=== PATIENT | female | born 1950 | race African-American/Black ===

== ENCOUNTER 2016-11-04 19:07 | Emergency (ER) | payer MEDICAID ==
[~2016-11-04] VITALS: Ht 170.2 cm; Wt 63.5 kg
[~2016-11-04 19:07] MED LIST: AMLO5TAB2 PO; CITA-77; DIVA500T59 PO; DOCU60SY2 PO; FERRTAB PO; FLUO20CA19 PO; HYDRX10T PO; INSLISPI; LORA-622 PO; MECL12.554 PO; METF-314; METO25TA5; MULT-690 PO; NAPR220C PO; POTA99TA15 PO; PROZAC; RISP3TAB41; TRAZADONE PO
[2016-11-04 19:54] VITALS: BP 128/96
== END 2016-11-04 22:17 | disposition home or self-care (01) ==
LOC: EDUNIT# 19:07 → EDBD 19:07 → ER 19:12
DX: G89.29 Other chronic pain (principal); M54.5 Low back pain; M19.90 Unspecified osteoarthritis, unspecified site; E11.9 Type 2 diabetes mellitus without complications; I10 Essential (primary) hypertension; Z88.0 Allergy status to penicillin
CPT/HCPCS: 72040; 72070; 72100

== ENCOUNTER 2017-08-26 14:00 | Emergency (ER) | payer MEDICAID ==
[~2017-08-26] VITALS: Ht 177.8 cm; Wt 77.1 kg
[~2017-08-26 14:00] MED LIST changes: -METF-314; +METF-371
[2017-08-26 14:09] VITALS: BP 140/70
== END 2017-08-26 16:15 | disposition left against medical advice (07) ==
LOC: ER 14:00
DX: F41.9 Anxiety disorder, unspecified (principal); Z53.21 Procedure and treatment not carried out due to patient leaving prior to being seen by health care provider
CPT/HCPCS: 93005

== ENCOUNTER 2017-11-10 13:36 | Emergency (ER) | payer MEDICAID ==
[~2017-11-10] VITALS: Ht 167.6 cm; Wt 74.8 kg
[2017-11-10 15:13] LABS: BUN/Creatinine Ratio 16.8; Calcium 8.8 mg/dL (8.5-10.1); Potassium 3.8 mmol/L (3.5-5.1)
[2017-11-10 15:16] LABS: Bilirubin, Total 0.1 mg/dL (0.2-1.0); Total Protein 7.2 g/dL (6.4-8.2)
[2017-11-10 15:21] LABS: Basophils # (auto) 0 uL; Basophils % (auto) 0.5 % (0.0-2.0); Eosinophils # (auto) 0.1 uL; Eosinophils % (auto) 1.2 % (0.0-7.0); Hematocrit 35.2 % (36.0-46.0); Hemoglobin 11.7 g/dL (12.2-16.2); Lymphocytes # (auto) 2.2 uL; Lymphocytes % (auto) 37.8 % (10.0-50.0); Mean Corpuscular Hemoglobin 30.4 pg (28.0-32.0); Mean Corpuscular Hgb Conc. 33.2 g/dL (32.0-36.0); Mean Corpuscular Volume 91.3 fL (80.0-100.0); Monocytes # (auto) 0.4 uL; Monocytes % (auto) 7.1 % (0.0-12.0); Neutrophils # (auto) 3.1 uL; Neutrophils % (auto) 53.4 % (37.0-80.0); Nucleated Red Blood Cells % 0.2 %; Platelet Count (auto) 233 10^3/uL (140-450); Red Blood Cells 3.85 10^6/uL (4.0-5.20); Red Cell Distribution Width 14.2 % (11.8-14.3); White Blood Cell 5.9 10^3/uL (4.4-10.8)
[2017-11-10 17:57] LABS: Urine Bacteria FEW /hpf (None Seen); Urine Blood Negative /uL (Negative); Urine Specific Gravity 1.003 (1.001-1.035); Urine WBC 9 /hpf (0 - 5)
[2017-11-10] MEDS ORDERED: cefTRIAXone SOD 1,000 MG VL IM ONE (19:00)
[2017-11-10] MEDS ORDERED: LIDOCAINE 1% HCL (LOCAL ANESTH.) INJ 20ML MDV ONE (21:18)
[2017-11-10 21:25] VITALS: BP 132/85
== END 2017-11-10 22:18 | disposition home or self-care (01) ==
LOC: ER 13:36 → EDBD 13:36 → ER 22:18
DX: N39.0 Urinary tract infection, site not specified (principal); D64.9 Anemia, unspecified; E11.9 Type 2 diabetes mellitus without complications; F20.9 Schizophrenia, unspecified; F32.9 Major depressive disorder, single episode, unspecified; F41.9 Anxiety disorder, unspecified; Z79.4 Long term (current) use of insulin; Z88.0 Allergy status to penicillin
CPT/HCPCS: 36415; 71045; 80053; 81001; 82962; 85025; 93005; 96372; 99285; J0696; J2001

== ENCOUNTER 2018-03-12 18:19 | Emergency (ER) | payer MEDICAID ==
[~2018-03-12] VITALS: Ht 170.2 cm; Wt 72.6 kg
[~2018-03-12 18:19] MED LIST changes: +AMLO5TAB13 PO; -AMLO5TAB2 PO
[2018-03-12 20:27] LABS: Basophils # (auto) 0 uL; Basophils % (auto) 0.5 % (0.0-2.0); Eosinophils # (auto) 0.1 uL; Eosinophils % (auto) 1.8 % (0.0-7.0); Hemoglobin 11.9 g/dL (12.2-16.2); Lymphocytes # (auto) 1.6 uL; Lymphocytes % (auto) 29.9 % (10.0-50.0); Mean Corpuscular Hemoglobin 30.3 pg (28.0-32.0); Mean Corpuscular Hgb Conc. 33.2 g/dL (32.0-36.0); Mean Corpuscular Volume 91.4 fL (80.0-100.0); Monocytes # (auto) 0.5 uL; Neutrophils # (auto) 3.1 uL; Neutrophils % (auto) 57.8 % (37.0-80.0); Nucleated Red Blood Cells % 0.1 %; Platelet Count (auto) 205 10^3/uL (140-450); Red Blood Cells 3.94 10^6/uL (4.0-5.20); Red Cell Distribution Width 14.1 % (11.8-14.3); White Blood Cell 5.4 10^3/uL (4.4-10.8)
[2018-03-12 20:43] LABS: Salicylate < 1.7 mg/dL (2.8-20.0)
[2018-03-12 20:45] LABS: Albumin 3.4 g/dL (3.4-5.0); BUN/Creatinine Ratio 10.3; Bilirubin, Total 0.3 mg/dL (0.2-1.0); Calcium 9.2 mg/dL (8.5-10.1); Potassium 4.1 mmol/L (3.5-5.1); Total Protein 7.9 g/dL (6.4-8.2)
[2018-03-12 20:47] LABS: Acetaminophen < 2.0 ug/mL (10-30)
[2018-03-12 22:10] VITALS: BP 146/80
== END 2018-03-12 21:36 | disposition home or self-care (01) ==
LOC: EDBD 18:19 → ER 18:23
DX: F20.0 Paranoid schizophrenia (principal); E11.65 Type 2 diabetes mellitus with hyperglycemia; F31.9 Bipolar disorder, unspecified; I10 Essential (primary) hypertension; F41.9 Anxiety disorder, unspecified; M19.90 Unspecified osteoarthritis, unspecified site; Z88.0 Allergy status to penicillin; Z79.899 Other long term (current) drug therapy; Z91.14 Patient's other noncompliance with medication regimen
CPT/HCPCS: 36415; 80053; 80329; 85025

== ENCOUNTER 2018-06-09 12:25 | Emergency (ER) | payer MEDICARE, MEDICAID ==
[~2018-06-09] VITALS: Ht 175.3 cm; Wt 77.1 kg
[2018-06-09] MEDS ORDERED: SODIUM CHLORIDE 0.9% 1,000 ML IVB ONE (12:36)
[2018-06-09] MEDS ORDERED: ONDANSETRON HCL 4 MG/2 ML VIAL IV ONE (12:45)
[2018-06-09] MEDS ORDERED: LORazepam 0.5 MG TAB PO ONE (12:45)
[2018-06-09 12:48] VITALS: BP 125/78
[2018-06-09 13:06] LABS: Basophils # (auto) 0 uL; Basophils % (auto) 0.5 % (0.0-2.0); Eosinophils # (auto) 0 uL; Eosinophils % (auto) 0.8 % (0.0-7.0); Hemoglobin 11.8 g/dL (12.2-16.2); Lymphocytes # (auto) 1.4 uL; Lymphocytes % (auto) 32.7 % (10.0-50.0); Mean Corpuscular Hemoglobin 29.5 pg (28.0-32.0); Mean Corpuscular Hgb Conc. 32.7 g/dL (32.0-36.0); Mean Corpuscular Volume 90.2 fL (80.0-100.0); Monocytes # (auto) 0.3 uL; Monocytes % (auto) 7.8 % (0.0-12.0); Neutrophils # (auto) 2.5 uL; Neutrophils % (auto) 58.2 % (37.0-80.0); Platelet Count (auto) 247 10^3/uL (140-450); Red Blood Cells 3.99 10^6/uL (4.0-5.20); Red Cell Distribution Width 14.5 % (11.8-14.3); White Blood Cell 4.3 10^3/uL (4.4-10.8)
[2018-06-09 13:19] LABS: INR 0.91 (0.9-1.15); Prothrombin Time 9.8 sec (9.27-12.13)
[2018-06-09 13:20] LABS: Albumin 3.2 g/dL (3.4-5.0); Calcium 9.1 mg/dL (8.5-10.1)
[2018-06-09 13:23] LABS: BUN/Creatinine Ratio 13.9; Bilirubin, Total 0.1 mg/dL (0.2-1.0); Total Protein 7.4 g/dL (6.4-8.2)
[2018-06-09 15:12] LABS: Urine Bacteria NONE SEEN /hpf (None Seen); Urine Blood Negative /uL (Negative); Urine Specific Gravity 1.004 (1.001-1.035); Urine WBC 1 /hpf (0 - 5)
== END 2018-06-09 15:37 | disposition home or self-care (01) ==
LOC: EDUNIT# 12:25 → ER 12:25
DX: F41.9 Anxiety disorder, unspecified (principal); R10.13 Epigastric pain; R11.2 Nausea with vomiting, unspecified; R19.7 Diarrhea, unspecified; F20.9 Schizophrenia, unspecified; F31.9 Bipolar disorder, unspecified; Z88.0 Allergy status to penicillin; Z79.899 Other long term (current) drug therapy
CPT/HCPCS: 36415; 74176; 80053; 81001; 82150; 82962; 83690; 85025; 85610; 85730

== ENCOUNTER 2020-03-29 21:54 | Emergency (ER) | payer MEDICARE, MEDICAID ==
[~2020-03-29] VITALS: Ht 167.6 cm; Wt 65.8 kg
[~2020-03-29 21:54] MED LIST changes: -AMLO5TAB13 PO; +AMLO5TAB15 PO; +DIVA500T13 PO; -DIVA500T59 PO; +MECL12.514 PO; -MECL12.554 PO
[2020-03-29 22:44] LABS: Urine Bacteria FEW /hpf (None Seen); Urine Blood Negative /uL (Negative); Urine Specific Gravity 1.002 (1.001-1.035); Urine WBC <1 /hpf (0 - 5)
[2020-03-30 00:59] LABS: Basophils # (auto) 0 10 ^3/uL (0-0.2); Basophils % (auto) 0.4 % (0.0-2.0); Eosinophils # (auto) 0.1 10 ^3/uL (0-0.8); Eosinophils % (auto) 1.8 % (0.0-7.0); Hematocrit 37.6 % (36.0-46.0); Hemoglobin 12.3 g/dL (12.2-16.2); Lymphocytes # (auto) 3.2 10 ^3/uL (0.4-5.4); Lymphocytes % (auto) 46.5 % (10.0-50.0); Mean Corpuscular Hemoglobin 29.3 pg (28.0-32.0); Mean Corpuscular Hgb Conc. 32.7 g/dL (32.0-36.0); Mean Corpuscular Volume 89.7 fL (80.0-100.0); Monocytes # (auto) 0.6 10 ^3/uL (0-1.3); Monocytes % (auto) 8.1 % (0.0-12.0); Neutrophils % (auto) 43.2 % (37.0-80.0); Nucleated Red Blood Cells % 0.2 %; Platelet Count (auto) 204 10^3/uL (140-450); Red Blood Cells 4.19 10^6/uL (4.0-5.20); Red Cell Distribution Width 15.8 % (11.8-14.3); White Blood Cell 6.9 10^3/uL (4.4-10.8)
[2020-03-30 01:15] LABS: INR 0.97 (0.9-1.15); Partial Thromboplastin Time 27.9 sec (23.0-31.2)
[2020-03-30 01:17] LABS: Alanine Aminotransferase 29 U/L (13-56); Albumin 3.2 g/dL (3.4-5.0); Anion Gap 8 (5-15); Aspartate Aminotransferase 19 U/L (15-37); BUN/Creatinine Ratio 15.5; Blood Urea Nitrogen 17 mg/dL (7-18); Calcium 9.6 mg/dL (8.5-10.1); Carbon Dioxide 27 mmol/L (21-32); Chloride 107 mmol/L (98-107); GFR African American 63 mL/min; GFR Non-African American 52 mL/min; Glucose 110 mg/dL (74-106); Potassium 4.2 mmol/L (3.5-5.1); Sodium 142 mmol/L (136-145)
[2020-03-30 01:36] LABS: Alkaline Phosphatase 138 U/L (45-117); Bilirubin, Total 0.3 mg/dL (0.2-1.0); Total Protein 7.2 g/dL (6.4-8.2)
[2020-03-30] MEDS ORDERED: SODIUM CHLORIDE 0.9% 1,000 ML IV ONE (01:45)
[2020-03-30] MEDS ORDERED: IOHEXOL 350 MG/ML 100ML IJ ONE (01:51)
[2020-03-30 07:35] VITALS: BP 134/74
== END 2020-03-30 09:52 | disposition home or self-care (01) ==
LOC: EDBD 21:54 → ER 21:57
DX: R07.89 Other chest pain (principal); K21.9 Gastro-esophageal reflux disease without esophagitis; E11.9 Type 2 diabetes mellitus without complications; I10 Essential (primary) hypertension; Z88.0 Allergy status to penicillin
CPT/HCPCS: 36415; 71045; 71275; 80053; 81001; 82962; 83880; 84484; 85025; 85379; 85610; 85730; 96360; 96361; 99285; Q9967

== ENCOUNTER 2020-04-15 15:19 | Inpatient (IN) | payer MEDICARE, MEDICAID ==
[~2020-04-15] VITALS: Ht 170.2 cm; Wt 77.7 kg
[2020-04-15] MEDS ORDERED: PIPERACILLIN-TAZOB 3.375GM 100 ML IV ONE (15:45)
[2020-04-15] MEDS ORDERED: SODIUM CHLORIDE 0.9% 1,000 ML IV ONE (15:45)
[2020-04-15 18:05] LABS: Basophils # (auto) 0 10 ^3/uL (0-0.2); Basophils % (auto) 0.6 % (0.0-2.0); Eosinophils # (auto) 0.1 10 ^3/uL (0-0.8); Eosinophils % (auto) 1.2 % (0.0-7.0); Hematocrit 37.8 % (36.0-46.0); Hemoglobin 12.5 g/dL (12.2-16.2); Lymphocytes # (auto) 2.1 10 ^3/uL (0.4-5.4); Lymphocytes % (auto) 37.1 % (10.0-50.0); Mean Corpuscular Hemoglobin 29.8 pg (28.0-32.0); Mean Corpuscular Hgb Conc. 32.9 g/dL (32.0-36.0); Mean Corpuscular Volume 90.5 fL (80.0-100.0); Monocytes # (auto) 0.4 10 ^3/uL (0-1.3); Monocytes % (auto) 7.6 % (0.0-12.0); Neutrophils % (auto) 53.5 % (37.0-80.0); Nucleated Red Blood Cells % 0.2 %; Platelet Count (auto) 206 10^3/uL (140-450); Red Blood Cells 4.18 10^6/uL (4.0-5.20); Red Cell Distribution Width 15.4 % (11.8-14.3); White Blood Cell 5.6 10^3/uL (4.4-10.8)
[2020-04-15 18:21] LABS: Albumin 3.7 g/dL (3.4-5.0); Anion Gap 5 (5-15); Blood Urea Nitrogen 20 mg/dL (7-18); Calcium 8.8 mg/dL (8.5-10.1); Carbon Dioxide 27 mmol/L (21-32); Chloride 103 mmol/L (98-107); Glucose 218 mg/dL (74-106); Sodium 135 mmol/L (136-145)
[2020-04-15 18:30] LABS: Alanine Aminotransferase 41 U/L (13-56); Alkaline Phosphatase 210 U/L (45-117); Aspartate Aminotransferase 51 U/L (15-37); BUN/Creatinine Ratio 17.5; Bilirubin, Total 0.2 mg/dL (0.2-1.0); CRP High Sensitivity 1.09 mg/dL (< 0.3); GFR African American 61 mL/min; GFR Non-African American 50 mL/min; Lactate Dehydrogenase 273 U/L (84-246); Total Protein 8.2 g/dL (6.4-8.2)
[2020-04-15] MEDS ORDERED: MORPHINE SULF INJ 2 MG/ML SYRINGE 1ML IV PRN ×2 (18:45→20:30)
[2020-04-15] MEDS ORDERED: NITROGLYCERIN 0.4 MG SL TAB SL PRN ×2 (18:45→20:30)
[2020-04-15 19:36] LABS: Urine Bacteria FEW /hpf (None Seen); Urine Blood Negative /uL (Negative); Urine Specific Gravity 1.003 (1.001-1.035); Urine WBC 2 /hpf (0 - 5)
[2020-04-15] MEDS ORDERED: ALUM & MAG HYDROX-SIMETH LIQ(MAALOX) 30 ML PO PRN (20:30)
[2020-04-15] MEDS ORDERED: DOCUSATE SOD 100 MG CAP PO PRN (20:30)
[2020-04-15] MEDS ORDERED: DEXTROSE (50%) 50ML SYRG IV PRN (20:30)
[2020-04-15] MEDS ORDERED: HYDROcodone-ACET 5/325MG TAB PO PRN (20:30)
[2020-04-15] MEDS ORDERED: ONDANSETRON HCL 4 MG/2 ML VIAL IV PRN (20:30)
[2020-04-15] MEDS: SODIUM CHLORIDE 0.9% 1,000 ML IV SCH (21:39)
[2020-04-15 21:51] LABS: Alcohol, Urine < 3.0 mg/dL (0-10); Amphetamine Screen, Urine NEGATIVE (NEGATIVE); Barbiturate Scree,Urine NEGATIVE (NEGATIVE); Benzodiazephine Screen, Urine NEGATIVE (NEGATIVE); Cannabinoid Screen, Urine NEGATIVE (NEGATIVE); Cocaine Screen, Urine NEGATIVE (NEGATIVE); Opiate Scree,Urine NEGATIVE (NEGATIVE); Phencyclidine Screen, Urine NEGATIVE (NEGATIVE)
[2020-04-15] MEDS: AZTREONAM 1GM INJ 1 GM in D5W 5% 50 ML IV SCH (22:00)
[2020-04-15 22:50] VITALS: BP 141/83
--- NOTE | 2020-04-15 22:50 | NUR ---
pt arrived via wheel chair. pt transferred self to hospital bed pt has cane for assistive device. pt is on room air, 99% o2 saturation
[2020-04-15 23:40] LABS: Cholesterol 169 mg/dL (< 200)
[2020-04-15 23:43] LABS: HDL Cholesterol 65 mg/dL (40-59); LDL Cholesterol 87 mg/dL (< 100); Triglycerides 82 mg/dL (< 150)
[2020-04-16] MEDS: CLINDAMYCIN 600MG IV 50 ML IV SCH ×3 (00:03→14:58)
[2020-04-16] MEDS: ACCU-CHEK COMFORT CURVE STRIP VI SCH ×5 (00:03→21:27)
[2020-04-16] MEDS: ATORVASTATIN 20 MG TAB PO SCH ×2 (00:03→21:27)
[2020-04-16] MEDS: InsuLIN REG 1unit/0.01ml Soln (100units/ml) SC SCH ×5 (00:04→21:43)
--- NOTE | 2020-04-16 01:11 | NUR ---
In House [facility] Covid 19 swabbed walked to lab by Madison STEARNS.
[2020-04-16 05:00] VITALS: BP 141/86
--- NOTE | 2020-04-16 07:00 | NUR ---
closing note pt resting in semi fowlers with HOB at 30 degrees. no s/s of pain or distress. pt is on room air. endorsed care to day shift RN.
--- NOTE | 2020-04-16 07:10 | NUR ---
OPENING SHIFT NOTE ASSUMED CARE OF PATIENT FROM EDGER MACHINE HELPER JO ANN CASTAÑEDA. PATIENT IS AWAKE, ALERT, AND ORIENTED X4. PATIENT HAS NO S/S OF DISTRESS/SOB OR PAIN. INSTRUCTED PATIENT ON POC, PATIENT VERBALIZED UNDERSTANDING. BED IS IN LOWEST POSITION WITH SIDE RAILS RAISED X2, BED WHEELS LOCKED, AND CALL LIGHT IS WITHIN REACH. WILL CONTINUE TO MONITOR.
[2020-04-16 09:00] VITALS: BP 139/85
--- NOTE | 2020-04-16 09:00 | NUR ---
WOUND CARE NOTE: Wound care in to see patient per wound care request regarding Rt foot skin issue that are noted on admission. Bedside nurse took photograph of patient's skin issue upon admission for reference. Patient is 69 years old female with admitting diagnosis of Non healing Rt Foot Ulcer. Patient is resting in bed in Rm. 235A. She's awake, alert and oriented, self turning and repositioning. Her Patrick score is 20. Patient has no open wound other than edema and erythema to R foot from reported accidental hitting of Rt toe against the door. No further wound care monitoring needed at this time. RECOMMENDATION: Reconsult for active wound, pressure injury, Low Patrick score of 12 and below. Addendum: 04/16/20 at 1610 by Jessica Avila RN Amended: Links added.
[2020-04-16] MEDS: AZTREONAM 1GM INJ 1 GM in D5W 5% 50 ML IV SCH ×2 (09:31→13:43)
[2020-04-16] MEDS: ASPirin 81 mg TAB PO SCH (09:31)
[2020-04-16] MEDS: risperiDONE 1 MG TAB PO SCH (09:32)
[2020-04-16] MEDS: FAMOTIDINE (10MG/ML) 2ML VL IV SCH (09:32)
[2020-04-16] MEDS: FLUoxetine HCL 20 MG CAP PO SCH (09:33)
[2020-04-16] MEDS: ENOXAPARIN SOD 40 MG/0.4 ML SYRINGE SC SCH (09:33)
[2020-04-16] MEDS: MULTIPLE VITAMINS W/ MINERALS TAB PO SCH (09:33)
[2020-04-16 12:48] VITALS: BP 147/74
[2020-04-16] MEDS: SODIUM CHLORIDE 0.9% 1,000 ML IV SCH ×2 (13:42→23:10)
--- NOTE | 2020-04-16 16:43 | NUR ---
ASSESSMENT: SS consult for unsafe living conditions, board home residence The patient is a 69-year-old female, who is alert but appears to struggle with mental illness. Patient cognitive abilities are not intact. Prior to admission patient was living at a room and board facility. Patient will return to [facility] post discharge. Per Becka patient will return to previous living arrangement post discharge. Patient is ambulatory without walking devices. Patient stated that she feels unsafe at [facility] where patient resides. Per patient daughter Becka, states that her mother frequently move from facility to facility per month due to her mental illness. Patient stated that her daughter Becka is her support system. Discharge Planning: will provide resources for room and board to patient. Patient will resume residence at [facility] post discharge. Addendum: 04/16/20 at 1643 by JOSE BROUSSARD Amended: Links added. Addendum: 04/19/20 at 1120 by JOSE BROUSSARD SW inquire patient on returning home safe, patient state that she wants to return to the facility and she feel safe residing there. Patient stated that she understands the facility must lock the doors at night (that was patient issue), to provide safety protocol to clients and staff members. Inquire Patient daughter as her daughter as decision maker as power of entrepreneur daughter stated that she doesnt not have POA. Daughter discusses patient care and decision with her mother (patient) provided information on POA and strongly encourage daughter to complete that process. Daughter understood and stated that she will work on that process on a later date.
[2020-04-16 16:45] VITALS: BP 126/75
--- NOTE | 2020-04-16 19:03 | NUR ---
CLOSING SHIFT NOTE PATIENT HAS NO S/S OF DISTRESS/SOB OR PAIN AT THIS TIME. WILL ENDORSE CARE TO KEY RINGER RN.
--- NOTE | 2020-04-16 21:00 | NUR ---
pt transferred to room 293a via wheelchair. care endorsed to JO ANN Tinsley.
--- NOTE | 2020-04-16 21:05 | NUR ---
Telemetry admit from [facility] EVELIAELIZABETH admitted to Telemetry unit after SBAR received from [facility]. Patient oriented to GRIFFIN DEL ANGEL RN [facility] room 293A and unit policies regarding patient care and visiting hours. Patient now on continuous telemetry monitoring, tele box #67 and telemetry reading on arrival to unit is SR 79 BPM. Bed locked in lowest position, side rails up X2, call light within reach. Patient placed on room air oxygen saturation 95% and encouraged to call if they need something. All questions and concerns addressed, patient verbalized understanding.
[2020-04-16] MEDS: LORazepam 0.5 MG TAB PO PRN (21:27)
[2020-04-16 22:00] VITALS: BP 122/67
--- NOTE | 2020-04-17 | NUR ---
PATIENT COMPLAINING OF PAIN ON RIGHT HAND IV SITE WITH REDNESS NOTED ON IV SITE.
--- NOTE | 2020-04-17 00:22 | NUR ---
IV removal IV right hand 22g DC'd with sterile technique, catheter fully intact. Pressure dressing applied to site. Patient tolerated procedure well.
--- NOTE | 2020-04-17 00:26 | NUR ---
IV insertion IV access obtained, via clean sterile technique by inserting 22 gauge catheter at left forearm after two attempts. IV secured properly. No trauma to site. Patient tolerated procedure well.
[2020-04-17 05:00] VITALS: BP 139/78
[2020-04-17 05:01] LABS: Basophils # (auto) 0 10 ^3/uL (0-0.2); Basophils % (auto) 0.6 % (0.0-2.0); Eosinophils # (auto) 0.1 10 ^3/uL (0-0.8); Eosinophils % (auto) 1.8 % (0.0-7.0); Hematocrit 38.8 % (36.0-46.0); Hemoglobin 12.6 g/dL (12.2-16.2); Lymphocytes # (auto) 1.6 10 ^3/uL (0.4-5.4); Lymphocytes % (auto) 34.8 % (10.0-50.0); Mean Corpuscular Hemoglobin 29.3 pg (28.0-32.0); Mean Corpuscular Hgb Conc. 32.4 g/dL (32.0-36.0); Mean Corpuscular Volume 90.6 fL (80.0-100.0); Monocytes # (auto) 0.4 10 ^3/uL (0-1.3); Monocytes % (auto) 8.3 % (0.0-12.0); Neutrophils # (auto) 2.5 10 ^3/uL (1.6-8.6); Neutrophils % (auto) 54.5 % (37.0-80.0); Nucleated Red Blood Cells % 0.2 %; Platelet Count (auto) 212 10^3/uL (140-450); Red Blood Cells 4.29 10^6/uL (4.0-5.20); Red Cell Distribution Width 15.5 % (11.8-14.3); White Blood Cell 4.7 10^3/uL (4.4-10.8)
[2020-04-17 05:27] LABS: BUN/Creatinine Ratio 17.7; Calcium 9.2 mg/dL (8.5-10.1); Magnesium 2.4 mg/dL (1.6-2.6); Potassium 4.3 mmol/L (3.5-5.1)
[2020-04-17] MEDS: ACCU-CHEK COMFORT CURVE STRIP VI SCH ×4 (05:47→22:00)
[2020-04-17] MEDS: InsuLIN REG 1unit/0.01ml Soln (100units/ml) SC SCH ×4 (05:50→22:00)
--- NOTE | 2020-04-17 07:15 | NUR ---
CARE ENDORSED TO DAY SHIFT ARMANDO CHERRY. NO SIGHS OF DISTRESS/ SOB, CALL LIGHT WITHIN REACH, BED LOCKED IN LOWEST POSITION, SIDE RAILS UP X2, CALL LIGHT WITHIN REACH.
[2020-04-17 08:34] VITALS: BP 131/71
[2020-04-17] MEDS: risperiDONE 1 MG TAB PO SCH (09:11)
[2020-04-17] MEDS: MULTIPLE VITAMINS W/ MINERALS TAB PO SCH (09:12)
[2020-04-17] MEDS: FLUoxetine HCL 20 MG CAP PO SCH (09:12)
[2020-04-17] MEDS: FAMOTIDINE (10MG/ML) 2ML VL IV SCH (09:15)
[2020-04-17] MEDS: ASPirin 81 mg TAB PO SCH (09:15)
[2020-04-17] MEDS: ENOXAPARIN SOD 40 MG/0.4 ML SYRINGE SC SCH ×2 (09:17→10:00)
--- NOTE | 2020-04-17 10:48 | NUR ---
PATIENT COMPLAINS OF NON RADIATING RIGHT FOOT PAIN RATED A 5 ON A SCALE OF 0-10. WILL CONTINUE TO MONITOR Signed: 04/17/20 at 1051 by PAMELA Rodriguez <Co-Signature Required> Co-Signed: 04/17/20 at 1051 by Ching Nelson RN
[2020-04-17] MEDS: ACETAMINOPHEN 325 MG TAB PO PRN (11:00)
--- NOTE | 2020-04-17 11:05 | NUR ---
PATIENT WAS GIVEN 650 MG TYLENOL FOR PAIN IN RIGHT FOOT. PATIENT TOLERATED WELL. Signed: 04/17/20 at 1107 by PAMELA Rodriguez <Co-Signature Required> Co-Signed: 04/17/20 at 1107 by Ching Nelson RN
[2020-04-17] MEDS: SODIUM CHLORIDE 0.9% 1,000 ML IV SCH (12:30)
[2020-04-17 12:40] VITALS: BP 133/88
--- NOTE | 2020-04-17 13:00 | NUR ---
SPOKE TO PATIENT'S DAUGHTER, PANCHO. UPDATE ON PT'S STATUS GIVEN.
--- NOTE | 2020-04-17 14:30 | NUR ---
SPOKE TO DR BLAIR RE: UA RESULT. ANTIBIOTIC NOT NEEDED PER . IS ALSO AWARE THAT I SPOKE TO PT'S DAUGHTER PANCHO AND ASKED HER ABOUT THE SAFETY ISSUE THAT HER MOTHER IS HAVING AT THE BOARD AND CARE. PER PANCHO, HER MOTHER MAKES UP A LOT OF STORIES ABOUT HER ROOMMATE WHICH WAS NEVER PROVEN TO BE TRUE. PER , HE WILL HAVE SOCIAL SERVICE HANDLE IT AND MAKE SURE PT IS SAFE FOR DC.
[2020-04-17 16:41] VITALS: BP 152/99
--- NOTE | 2020-04-17 18:06 | NUR ---
SPOKE TO PHARMACIST RE: PT'S SCHEDULED MIDODRINE AT 1800. PT TOOK THE LAST DOSE AT 2PM INSTEAD OF 12. PER PHARMACIST GIVE THE MEDICATION AT 8PM TONIGHT BUT THE SCHEDULE FOR TOMORROW WILL REMAIN THE SAME (6, 12, 1800). WILL ENDORSE TO MARIN CHERRY. Addendum: 04/17/20 at 1808 by Ching Nelson RN WRONG PT NOTE
--- NOTE | 2020-04-17 19:00 | NUR ---
Opening Shift Note Assumed care of patient, awake and alert. No S/S of distress/SOB or pain. Instructed on POC and to call for assist PRN, will continue to monitor for changes Q1hr and PRN.
[2020-04-17 22:00] VITALS: BP 144/94
[2020-04-17] MEDS: ATORVASTATIN 20 MG TAB PO SCH (22:00)
[2020-04-18] MEDS: SODIUM CHLORIDE 0.9% 1,000 ML IV SCH ×2 (00:23→17:32)
[2020-04-18 05:00] VITALS: BP 153/96
[2020-04-18] MEDS: ACCU-CHEK COMFORT CURVE STRIP VI SCH ×4 (06:06→21:56)
[2020-04-18] MEDS: InsuLIN REG 1unit/0.01ml Soln (100units/ml) SC SCH ×4 (06:07→22:04)
--- NOTE | 2020-04-18 08:00 | NUR ---
Received pt resting in bed, call light with in reach, no pain reported at this time, will continue to monitor pt.
[2020-04-18] MEDS: MULTIPLE VITAMINS W/ MINERALS TAB PO SCH (09:09)
[2020-04-18] MEDS: ASPirin 81 mg TAB PO SCH (09:09)
[2020-04-18] MEDS: FAMOTIDINE (10MG/ML) 2ML VL IV SCH (09:09)
[2020-04-18] MEDS: FLUoxetine HCL 20 MG CAP PO SCH (09:10)
[2020-04-18] MEDS: risperiDONE 1 MG TAB PO SCH (09:10)
[2020-04-18] MEDS: ENOXAPARIN SOD 40 MG/0.4 ML SYRINGE SC SCH (09:11)
[2020-04-18 09:38] VITALS: BP 140/85
--- NOTE | 2020-04-18 11:33 | NUR ---
Received call from Dr. Kelly to inquire on pt's status, rt foot CT scan read, orders received for Clindamycin 600 mg iv q8hrs. As per Dr. Kelly he will be here soon to see pt.
[2020-04-18] MEDS: ACETAMINOPHEN 325 MG TAB PO PRN ×3 (12:20→20:43)
[2020-04-18 12:40] VITALS: BP 141/92
[2020-04-18] MEDS: CLINDAMYCIN 600MG IV 50 ML IV SCH ×2 (13:56→21:45)
--- NOTE | 2020-04-18 14:20 | NUR ---
Dr. Kelly / podiatry at bed side to see pt, doctor assessed the rt foot, and orders received for rt foot xray 3 view to r/o fracture.
[2020-04-18 16:41] VITALS: BP 129/86
--- NOTE | 2020-04-18 18:04 | NUR ---
Dr. Mejia at bed side to see pt, doctor informed of pt requesting her blood pressure home medication. Orders received to continue BP home medication Amlodipine.
--- NOTE | 2020-04-18 19:15 | NUR ---
Opening Shift Note Assumed care of patient, awake and alert. Instructed on POC and to call for assist PRN, will continue to monitor for changes Q1hr and PRN.
[2020-04-18] MEDS: ATORVASTATIN 20 MG TAB PO SCH (21:46)
[2020-04-18] MEDS: LORazepam 0.5 MG TAB PO PRN (21:46)
[2020-04-18 22:10] VITALS: BP 114/61
[2020-04-19] MEDS: SODIUM CHLORIDE 0.9% 1,000 ML IV SCH ×2 (04:30→17:50)
[2020-04-19 05:30] VITALS: BP 136/77
[2020-04-19] MEDS: CLINDAMYCIN 600MG IV 50 ML IV SCH ×2 (06:09→17:14)
[2020-04-19] MEDS: ACCU-CHEK COMFORT CURVE STRIP VI SCH ×3 (06:41→17:30)
[2020-04-19] MEDS: InsuLIN REG 1unit/0.01ml Soln (100units/ml) SC SCH ×3 (06:50→17:00)
[2020-04-19 06:56] LABS: Basophils # (auto) 0 10 ^3/uL (0-0.2); Basophils % (auto) 0.4 % (0.0-2.0); Eosinophils # (auto) 0.1 10 ^3/uL (0-0.8); Eosinophils % (auto) 1.6 % (0.0-7.0); Hematocrit 37.9 % (36.0-46.0); Hemoglobin 12.4 g/dL (12.2-16.2); Lymphocytes # (auto) 2.1 10 ^3/uL (0.4-5.4); Lymphocytes % (auto) 41.1 % (10.0-50.0); Mean Corpuscular Hemoglobin 29.6 pg (28.0-32.0); Mean Corpuscular Hgb Conc. 32.8 g/dL (32.0-36.0); Mean Corpuscular Volume 90.4 fL (80.0-100.0); Monocytes # (auto) 0.4 10 ^3/uL (0-1.3); Neutrophils # (auto) 2.5 10 ^3/uL (1.6-8.6); Neutrophils % (auto) 48.9 % (37.0-80.0); Nucleated Red Blood Cells % 0.1 %; Platelet Count (auto) 222 10^3/uL (140-450); Red Blood Cells 4.19 10^6/uL (4.0-5.20); Red Cell Distribution Width 15.4 % (11.8-14.3); White Blood Cell 5.1 10^3/uL (4.4-10.8)
[2020-04-19 07:17] LABS: Calcium 9.4 mg/dL (8.5-10.1); Potassium 4.3 mmol/L (3.5-5.1)
[2020-04-19 08:00] VITALS: BP 142/95
[2020-04-19 09:00] VITALS: BP 153/94
[2020-04-19] MEDS: ASPirin 81 mg TAB PO SCH (09:43)
[2020-04-19] MEDS: FAMOTIDINE (10MG/ML) 2ML VL IV SCH (09:43)
[2020-04-19] MEDS: MULTIPLE VITAMINS W/ MINERALS TAB PO SCH (09:43)
[2020-04-19] MEDS: FLUoxetine HCL 20 MG CAP PO SCH (09:44)
[2020-04-19] MEDS: risperiDONE 1 MG TAB PO SCH (09:45)
[2020-04-19] MEDS ORDERED: amLODIPine BESYLATE 5 MG TAB PO SCH (10:00)
[2020-04-19 13:00] VITALS: BP 146/82
--- NOTE | 2020-04-19 15:18 | NUR ---
Nutrition note Pt edu on diabetic low na diet. oral and written communication provided
[2020-04-19 16:03] VITALS: BP 153/94
--- NOTE | 2020-04-19 16:15 | NUR ---
D/C Planning Per social service consult to resume home health. Faxed clinical information to [facility]. Per Mehreen with [facility] patient has been accepted and service to start within 24-48hrs upon d/c day.
[2020-04-19 16:34] VITALS: BP 138/86
[2020-04-19] MEDS: ENOXAPARIN SOD 40 MG/0.4 ML SYRINGE SC SCH (17:13)
--- NOTE | 2020-04-19 18:29 | NUR ---
Discharge instructions given as ordered. Encourage to follow up with PMD as instructed. Daughter Rosita notified of the discharge. All questions and concerns addressed. Patient verbalized understanding. Medication reconciliation form completed and copy given to patient. IV removed with catheter intact, pressure dressing applied. Telemetry unit returned to ICU. Patient taken to vehicle via wheelchair with all personal belongings, accompanied by staff . No distress noted at time of departure.
== END 2020-04-19 18:50 | disposition home health service (06) | DRG 342 ==
LOC: EDUNIT# 15:19 → ER 15:19 → EDBD 15:19 → TELE 15:20 → UNDOADMIN 15:20 → TELE-EAST 15:21 → TELE-WESTW 04-16 21:06 → TELE 04-19 13:50 → TELE-WESTW 04-19 13:52
PROVIDERS: ADMIT Hospitalist; ATTEND Internal Medicine
DX: S92.911A Unspecified fracture of right toe(s), initial encounter for closed fracture (principal); E11.51 Type 2 diabetes mellitus with diabetic peripheral angiopathy without gangrene; E11.40 Type 2 diabetes mellitus with diabetic neuropathy, unspecified; E87.1 Hypo-osmolality and hyponatremia; M19.90 Unspecified osteoarthritis, unspecified site; F31.9 Bipolar disorder, unspecified; F41.9 Anxiety disorder, unspecified; E11.22 Type 2 diabetes mellitus with diabetic chronic kidney disease; F20.9 Schizophrenia, unspecified; I12.9 Hypertensive chronic kidney disease with stage 1 through stage 4 chronic kidney disease, or unspecified chronic kidney disease; N18.9 Chronic kidney disease, unspecified; Z20.828 Contact with and (suspected) exposure to other viral communicable diseases; Z79.4 Long term (current) use of insulin; Z79.899 Other long term (current) drug therapy; Z82.49 Family history of ischemic heart disease and other diseases of the circulatory system; Z83.3 Family history of diabetes mellitus; Z87.891 Personal history of nicotine dependence; Z88.0 Allergy status to penicillin
CPT/HCPCS: 36415; 71045; 73630; 73700; 80048; 80053; 80061; 80307; 81001; 82607; 82728; 82962; 83036; 83615; 83735; 83880; 84484; 85025; 85652; 86141; 87040; 87086; 87426; 93925; 93970; G0378; J1815; J2543; J3490; J7060

== ENCOUNTER 2020-06-11 16:51 | Inpatient (IN) | payer MEDICARE, MEDICAID ==
[~2020-06-11] VITALS: Ht 170.2 cm; Wt 77.1 kg
[2020-06-11 19:07] LABS: Basophils # (auto) 0 10 ^3/uL (0-0.2); Basophils % (auto) 0.1 % (0.0-2.0); Eosinophils # (auto) 0 10 ^3/uL (0-0.8); Hematocrit 33.9 % (36.0-46.0); Hemoglobin 11.1 g/dL (12.2-16.2); Lymphocytes # (auto) 0.6 10 ^3/uL (0.4-5.4); Lymphocytes % (auto) 3.4 % (10.0-50.0); Mean Corpuscular Hemoglobin 29.7 pg (28.0-32.0); Mean Corpuscular Hgb Conc. 32.7 g/dL (32.0-36.0); Monocytes # (auto) 1.5 10 ^3/uL (0-1.3); Monocytes % (auto) 8.8 % (0.0-12.0); Neutrophils # (auto) 14.5 10 ^3/uL (1.6-8.6); Neutrophils % (auto) 87.7 % (37.0-80.0); Platelet Count (auto) 212 10^3/uL (140-450); Red Blood Cells 3.72 10^6/uL (4.0-5.20); Red Cell Distribution Width 14.6 % (11.8-14.3); White Blood Cell 16.5 10^3/uL (4.4-10.8)
[2020-06-11 19:25] LABS: Alanine Aminotransferase 41 U/L (13-56); Albumin 2.9 g/dL (3.4-5.0); Anion Gap 7 (5-15); Aspartate Aminotransferase 47 U/L (15-37); Blood Urea Nitrogen 38 mg/dL (7-18); Carbon Dioxide 25 mmol/L (21-32); Chloride 98 mmol/L (98-107); Glucose 228 mg/dL (74-106); INR 0.97 (0.9-1.15); Magnesium 2.7 mg/dL (1.6-2.6); Partial Thromboplastin Time 32.2 sec (23.0-31.2); Potassium 4.2 mmol/L (3.5-5.1); Sodium 130 mmol/L (136-145)
[2020-06-11 19:30] LABS: Alkaline Phosphatase 118 U/L (45-117); BUN/Creatinine Ratio 22.4; Bilirubin, Total 0.4 mg/dL (0.2-1.0); GFR African American 38 mL/min; GFR Non-African American 32 mL/min; Total Protein 7.5 g/dL (6.4-8.2)
[2020-06-11] MEDS ORDERED: cefTRIAXone 1GM/50ML D5W 50 ML IV ONE (22:15)
[2020-06-11] MEDS ORDERED: SODIUM CHLORIDE 0.9% 1,000 ML IV ONE (22:15)
[2020-06-12] MEDS ORDERED: VANCOMYCIN PER PHARMACY 0 MG IV SCH (02:30)
[2020-06-12] MEDS ORDERED: DOCUSATE SOD 100 MG CAP PO PRN (02:30)
[2020-06-12] MEDS ORDERED: NITROGLYCERIN 0.4 MG SL TAB SL PRN (02:30)
[2020-06-12] MEDS ORDERED: ONDANSETRON HCL 4 MG/2 ML VIAL IV PRN (02:30)
[2020-06-12] MEDS ORDERED: HYDROcodone-ACET 5/325MG TAB PO PRN (02:30)
[2020-06-12] MEDS ORDERED: DEXTROSE (50%) 50ML SYRG IV PRN (02:30)
[2020-06-12] MEDS ORDERED: MORPHINE SULF INJ 2 MG/ML SYRINGE 1ML IV PRN (02:30)
[2020-06-12] MEDS ORDERED: VANCOMYCIN 1GM/250ML 250 ML IV ONE (03:00)
[2020-06-12 04:19] LABS: Urine Bacteria FEW /hpf (None Seen); Urine Blood Negative /uL (Negative); Urine Specific Gravity 1.018 (1.001-1.035); Urine WBC 18 /hpf (0 - 5)
[2020-06-12] MEDS: SODIUM CHLOR 0.9% PF (SALINE LOCK) 10ML VIAL/SYR IV SCH ×3 (06:15→20:11)
[2020-06-12] MEDS: ACCU-CHEK COMFORT CURVE STRIP VI SCH ×4 (06:20→21:01)
[2020-06-12] MEDS: InsuLIN REG 1unit/0.01ml Soln (100units/ml) SC SCH ×4 (06:30→21:01)
[2020-06-12] MEDS: ZINC SULFATE 220mg CAP or TAB PO SCH (10:07)
[2020-06-12] MEDS: ASCORBIC ACID 500 MG TAB PO SCH ×2 (10:08→20:11)
[2020-06-12] MEDS: MULTIPLE VITAMIN TAB PO SCH (10:08)
[2020-06-12] MEDS: HEPARIN SODIUM (PORCINE) 5000 UNITS/ML 1ML VIAL SC SCH ×2 (10:11→20:11)
[2020-06-12] MEDS: FAMOTIDINE 20 MG TAB PO SCH ×2 (10:11→20:11)
[2020-06-12] MEDS ORDERED: CEFTRIAXONE SODIUM 2 GM in D5W 5% 50 ML IV ONE (12:30)
[2020-06-12] MEDS: ACETAMINOPHEN 325 MG TAB PO PRN ×2 (18:06→18:47)
[2020-06-12] MEDS ORDERED: traZODone HCL 50 MG TAB PO ONE (20:00)
[2020-06-12] MEDS: LORazepam 0.5 MG TAB PO PRN (21:59)
[2020-06-12 22:02] LABS: Basophils # (auto) 0 10 ^3/uL (0-0.2); Basophils % (auto) 0.1 % (0.0-2.0); Eosinophils # (auto) 0 10 ^3/uL (0-0.8); Eosinophils % (auto) 0.3 % (0.0-7.0); Hematocrit 30.9 % (36.0-46.0); Hemoglobin 9.9 g/dL (12.2-16.2); Lymphocytes # (auto) 0.6 10 ^3/uL (0.4-5.4); Lymphocytes % (auto) 3.5 % (10.0-50.0); Mean Corpuscular Hemoglobin 29.3 pg (28.0-32.0); Mean Corpuscular Hgb Conc. 32.1 g/dL (32.0-36.0); Mean Corpuscular Volume 91.3 fL (80.0-100.0); Monocytes # (auto) 1.3 10 ^3/uL (0-1.3); Monocytes % (auto) 8.5 % (0.0-12.0); Neutrophils # (auto) 13.8 10 ^3/uL (1.6-8.6); Neutrophils % (auto) 87.6 % (37.0-80.0); Platelet Count (auto) 193 10^3/uL (140-450); Red Blood Cells 3.38 10^6/uL (4.0-5.20); Red Cell Distribution Width 15.1 % (11.8-14.3); White Blood Cell 15.8 10^3/uL (4.4-10.8)
[2020-06-12 22:15] LABS: Albumin 2.4 g/dL (3.4-5.0); Calcium 8.9 mg/dL (8.5-10.1); Potassium 4.2 mmol/L (3.5-5.1)
[2020-06-12 22:18] LABS: BUN/Creatinine Ratio 23.9; Bilirubin, Total 0.2 mg/dL (0.2-1.0)
[2020-06-13] MEDS: SODIUM CHLOR 0.9% PF (SALINE LOCK) 10ML VIAL/SYR IV SCH ×3 (04:01→19:51)
[2020-06-13] MEDS ORDERED: VANCOMYCIN 750mg/250ml 250 ML IV ONE (06:00)
[2020-06-13] MEDS: ACCU-CHEK COMFORT CURVE STRIP VI SCH ×4 (06:03→21:51)
[2020-06-13] MEDS: InsuLIN REG 1unit/0.01ml Soln (100units/ml) SC SCH ×4 (06:03→21:52)
[2020-06-13 07:02] LABS: Basophils # (auto) 0 10 ^3/uL (0-0.2); Basophils % (auto) 0.2 % (0.0-2.0); Eosinophils # (auto) 0 10 ^3/uL (0-0.8); Eosinophils % (auto) 0.3 % (0.0-7.0); Hematocrit 29.4 % (36.0-46.0); Hemoglobin 9.5 g/dL (12.2-16.2); Lymphocytes # (auto) 0.5 10 ^3/uL (0.4-5.4); Lymphocytes % (auto) 3.3 % (10.0-50.0); Mean Corpuscular Hemoglobin 29.5 pg (28.0-32.0); Mean Corpuscular Hgb Conc. 32.4 g/dL (32.0-36.0); Mean Corpuscular Volume 90.8 fL (80.0-100.0); Monocytes # (auto) 1.4 10 ^3/uL (0-1.3); Monocytes % (auto) 8.5 % (0.0-12.0); Neutrophils # (auto) 14.3 10 ^3/uL (1.6-8.6); Neutrophils % (auto) 87.7 % (37.0-80.0); Nucleated Red Blood Cells % 0.1 %; Platelet Count (auto) 208 10^3/uL (140-450); Red Blood Cells 3.24 10^6/uL (4.0-5.20); Red Cell Distribution Width 14.9 % (11.8-14.3); White Blood Cell 16.3 10^3/uL (4.4-10.8)
[2020-06-13 07:06] LABS: Albumin 2.3 g/dL (3.4-5.0); Calcium 8.6 mg/dL (8.5-10.1); Potassium 4.1 mmol/L (3.5-5.1)
[2020-06-13 07:09] LABS: BUN/Creatinine Ratio 25.2; Bilirubin, Total 0.4 mg/dL (0.2-1.0); Total Protein 6.7 g/dL (6.4-8.2)
[2020-06-13] MEDS ORDERED: DOCUSATE SOD 100 MG CAP PO PRN (09:00)
[2020-06-13] MEDS: cefTRIAXone 1GM/50ML D5W 50 ML IV SCH (09:16)
[2020-06-13] MEDS: ZINC SULFATE 220mg CAP or TAB PO SCH (09:17)
[2020-06-13] MEDS: CITALOPRAM HYDROBR 20 MG TAB PO SCH (09:17)
[2020-06-13] MEDS: FAMOTIDINE 20 MG TAB PO SCH ×2 (09:18→21:51)
[2020-06-13] MEDS: FLUoxetine HCL 20 MG CAP PO SCH (09:18)
[2020-06-13] MEDS: HEPARIN SODIUM (PORCINE) 5000 UNITS/ML 1ML VIAL SC SCH ×2 (09:19→22:01)
[2020-06-13] MEDS: ASCORBIC ACID 500 MG TAB PO SCH ×2 (09:19→21:51)
[2020-06-13] MEDS: MULTIPLE VITAMIN TAB PO SCH (10:00)
[2020-06-13] MEDS: LORazepam 0.5 MG TAB PO PRN ×2 (14:25→21:52)
[2020-06-14] MEDS ORDERED: LISI-648 PO (02:51)
[2020-06-14] MEDS: SODIUM CHLOR 0.9% PF (SALINE LOCK) 10ML VIAL/SYR IV SCH ×3 (05:37→20:20)
[2020-06-14] MEDS: ACCU-CHEK COMFORT CURVE STRIP VI SCH ×4 (06:40→21:57)
[2020-06-14] MEDS: InsuLIN REG 1unit/0.01ml Soln (100units/ml) SC SCH ×4 (06:40→21:58)
[2020-06-14] MEDS: HEPARIN SODIUM (PORCINE) 5000 UNITS/ML 1ML VIAL SC SCH ×2 (10:00→20:19)
[2020-06-14] MEDS: CITALOPRAM HYDROBR 20 MG TAB PO SCH (10:00)
[2020-06-14] MEDS: FAMOTIDINE 20 MG TAB PO SCH ×2 (11:52→20:20)
[2020-06-14] MEDS: FLUoxetine HCL 20 MG CAP PO SCH (11:52)
[2020-06-14] MEDS: MULTIPLE VITAMIN TAB PO SCH (11:52)
[2020-06-14] MEDS: ASCORBIC ACID 500 MG TAB PO SCH ×2 (11:53→20:19)
[2020-06-14] MEDS: ZINC SULFATE 220mg CAP or TAB PO SCH (11:53)
[2020-06-14] MEDS: cefTRIAXone 1GM/50ML D5W 50 ML IV SCH (12:24)
[2020-06-14] MEDS: LISINOPRIL 10 MG TAB PO SCH (16:27)
[2020-06-14 17:16] VITALS: BP 136/70
[2020-06-14 20:10] VITALS: BP 123/67
[2020-06-14] MEDS: traZODone HCL 50 MG TAB PO SCH (20:20)
[2020-06-14 22:01] VITALS: BP 123/67
[2020-06-15 05:00] VITALS: BP 123/65
[2020-06-15] MEDS: SODIUM CHLOR 0.9% PF (SALINE LOCK) 10ML VIAL/SYR IV SCH ×3 (06:25→20:16)
[2020-06-15] MEDS: ACCU-CHEK COMFORT CURVE STRIP VI SCH ×4 (06:26→21:45)
[2020-06-15] MEDS: ACETAMINOPHEN 325 MG TAB PO PRN (06:26)
[2020-06-15] MEDS: InsuLIN REG 1unit/0.01ml Soln (100units/ml) SC SCH ×4 (06:27→21:55)
[2020-06-15 08:28] VITALS: BP 129/83
[2020-06-15] MEDS: FAMOTIDINE 20 MG TAB PO SCH ×2 (10:18→20:16)
[2020-06-15] MEDS: CITALOPRAM HYDROBR 20 MG TAB PO SCH (10:18)
[2020-06-15] MEDS: ASCORBIC ACID 500 MG TAB PO SCH ×2 (10:18→20:15)
[2020-06-15] MEDS: LISINOPRIL 10 MG TAB PO SCH (10:21)
[2020-06-15] MEDS: cefTRIAXone 1GM/50ML D5W 50 ML IV SCH (10:22)
[2020-06-15] MEDS: HEPARIN SODIUM (PORCINE) 5000 UNITS/ML 1ML VIAL SC SCH ×2 (10:22→20:15)
[2020-06-15] MEDS: FLUoxetine HCL 20 MG CAP PO SCH (10:23)
[2020-06-15] MEDS: ZINC SULFATE 220mg CAP or TAB PO SCH (10:23)
[2020-06-15] MEDS: MULTIPLE VITAMIN TAB PO SCH (10:23)
[2020-06-15 11:23] LABS: Hematocrit 30.8 % (36.0-46.0); Hemoglobin 10.6 g/dL (12.2-16.2); Mean Corpuscular Hemoglobin 30.8 pg (28.0-32.0); Mean Corpuscular Hgb Conc. 34.4 g/dL (32.0-36.0); Mean Corpuscular Volume 89.5 fL (80.0-100.0); Platelet Count (auto) 253 10^3/uL (140-450); Red Blood Cells 3.44 10^6/uL (4.0-5.20); Red Cell Distribution Width 14.7 % (11.8-14.3); White Blood Cell 11.5 10^3/uL (4.4-10.8)
[2020-06-15 11:34] LABS: Basophils % (manual) 0 (0.0-2.0); Blast Cells 0; Eosinophils % (manual) 0 (0-7); Promyelocytes % 0
[2020-06-15 13:00] VITALS: BP 133/77
[2020-06-15 13:49] LABS: Band Neutrophils % (manual) 14; Lymphocytes % (manual) 14 (10.0-50.0); Metamyelocytes % 2; Monocytes % (manual) 11 (0-12); Myelocytes % 5; Reactive Lymphocytes 1
[2020-06-15 16:42] VITALS: BP 127/68
[2020-06-15] MEDS: traZODone HCL 50 MG TAB PO SCH (20:16)
[2020-06-15 22:00] VITALS: BP 126/71
[2020-06-16 05:18] VITALS: BP 103/53
[2020-06-16] MEDS: ACCU-CHEK COMFORT CURVE STRIP VI SCH ×2 (06:21→11:40)
[2020-06-16] MEDS: SODIUM CHLOR 0.9% PF (SALINE LOCK) 10ML VIAL/SYR IV SCH (06:23)
[2020-06-16] MEDS: InsuLIN REG 1unit/0.01ml Soln (100units/ml) SC SCH ×2 (06:23→11:42)
[2020-06-16] MEDS: cefTRIAXone 1GM/50ML D5W 50 ML IV SCH (08:43)
[2020-06-16 09:00] VITALS: BP 109/75
[2020-06-16] MEDS: HEPARIN SODIUM (PORCINE) 5000 UNITS/ML 1ML VIAL SC SCH (09:43)
[2020-06-16] MEDS: CITALOPRAM HYDROBR 20 MG TAB PO SCH (09:49)
[2020-06-16] MEDS: FAMOTIDINE 20 MG TAB PO SCH (09:49)
[2020-06-16] MEDS: FLUoxetine HCL 20 MG CAP PO SCH (09:49)
[2020-06-16] MEDS: ASCORBIC ACID 500 MG TAB PO SCH (09:49)
[2020-06-16] MEDS: LISINOPRIL 10 MG TAB PO SCH (09:49)
[2020-06-16] MEDS: MULTIPLE VITAMIN TAB PO SCH (09:49)
[2020-06-16] MEDS: ZINC SULFATE 220mg CAP or TAB PO SCH (09:50)
[2020-06-16 13:00] VITALS: BP 121/82
== END 2020-06-16 14:23 | disposition home or self-care (01) | DRG 720 ==
LOC: ER 16:51 → EDBD 16:51 → TELE 16:52 → TELE-CENTR 06-14 17:16
PROVIDERS: ADMIT Nurse Practitioner Family; ATTEND Family Medicine
DX: A41.9 Sepsis, unspecified organism (principal); I24.9 Acute ischemic heart disease, unspecified; E11.65 Type 2 diabetes mellitus with hyperglycemia; D49.4 Neoplasm of unspecified behavior of bladder; N13.9 Obstructive and reflux uropathy, unspecified; F20.0 Paranoid schizophrenia; N39.0 Urinary tract infection, site not specified; R16.0 Hepatomegaly, not elsewhere classified; F31.9 Bipolar disorder, unspecified; G89.29 Other chronic pain; E87.1 Hypo-osmolality and hyponatremia; S80.02XA Contusion of left knee, initial encounter; M71.20 Synovial cyst of popliteal space [Baker], unspecified knee; K21.9 Gastro-esophageal reflux disease without esophagitis; D64.9 Anemia, unspecified; R33.9 Retention of urine, unspecified; E86.0 Dehydration; I10 Essential (primary) hypertension; Z88.0 Allergy status to penicillin; M54.9 Dorsalgia, unspecified; B96.20 Unspecified Escherichia coli [E. coli] as the cause of diseases classified elsewhere; I70.0 Atherosclerosis of aorta; K59.00 Constipation, unspecified; L03.90 Cellulitis, unspecified; M17.12 Unilateral primary osteoarthritis, left knee; N32.0 Bladder-neck obstruction; Z91.14 Patient's other noncompliance with medication regimen; Z82.49 Family history of ischemic heart disease and other diseases of the circulatory system; Z79.899 Other long term (current) drug therapy; Z20.828 Contact with and (suspected) exposure to other viral communicable diseases; S82.009A Unspecified fracture of unspecified patella, initial encounter for closed fracture; W18.39XA Other fall on same level, initial encounter; Y93.89 Activity, other specified; Y92.89 Other specified places as the place of occurrence of the external cause; Y99.8 Other external cause status; G93.41 Metabolic encephalopathy; N17.0 Acute kidney failure with tubular necrosis; J96.01 Acute respiratory failure with hypoxia
CPT/HCPCS: 36415; 51702; 70450; 71045; 74176; 80053; 80202; 81001; 82565; 82962; 83036; 83605; 83735; 83880; 84484; 85007; 85025; 85027; 85610; 85730; 87040; 87077; 87086; 87186; 87426; 96365; 96366; G0378; J0696; J1815; J7060